=== PATIENT | male | born 1985 | race African-American/Black ===

== ENCOUNTER 2018-11-20 22:34 | Emergency (ER) | payer MEDICAID ==
[~2018-11-20] VITALS: Ht 188 cm; Wt 70.8 kg
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
[2018-11-20] MEDS ORDERED: IBUPROFEN600 MG ORAL ×3 (23:55→23:57)
[2018-11-20] MEDS ORDERED: AMOXICILLIN500 MG ORAL ×3 (23:55→23:57)
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
[2018-11-21 00:25] VITALS: BP 139/80
[2018-11-21 00:30] VITALS: BP 139/80
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
== END 2018-11-21 00:30 | disposition home or self-care (01) ==
LOC: EMR 22:56
DX: H66.92 Otitis media, unspecified, left ear (principal)
CPT/HCPCS: 70450; 99284

== ENCOUNTER 2019-02-08 13:14 | Emergency (ER) | payer MEDICAID, OTHER ==
[~2019-02-08] VITALS: Ht 185.4 cm; Wt 69.4 kg
[~2019-02-08 13:14] MED LIST: AMOXICILLIN500 MG ORAL; IBUPROFEN600 MG ORAL
[2019-02-08] MEDS ORDERED: NKM (13:20)
[2019-02-08 13:23] VITALS: BP 138/92
--- NOTE | 2019-02-08 13:24 | NUR ---
ED Nurse Note: pt walked in to ED with friend due to possible insect bite on left lower leg. redness noted. ambulatory with steady gait. AAO x4. no fever. will wait for the further order.
[2019-02-08] MEDS ORDERED: BACTRIM DS TAB1 EAC1 ORAL (13:42)
[2019-02-08] MEDS ORDERED: MUPIROCIN22 GM TOPIC (13:42)
[2019-02-08] MEDS ORDERED: CEPHALEXIN500 MG ORAL (13:42)
--- NOTE | 2019-02-08 13:42 | Emergency Room Report ---
History of Present Illness General Chief Complaint: Skin Rash/Abscess Source: Patient Present Illness HPI 33-year-old male presents to the emergency department complaining of 4 out of 10 severity pain, swelling, erythema and warmth to an itchy insect bite on the left lateral calf progressive x2 days. Patient reports area of erythema is progressing outward. Patient denies fevers or chills. Patient reports he is up -to-date with vaccinations. Patient reports history of infected insect bite in the past which did require incision and drainage as he waited too long. Pt. swollen tender lymph nodes. Denies lesions/rashes elsewhere on the body. Denies new medications or body washes or creams. Denies swelling of the lips, tongue , throat or airway. Denies wheezing, or shortness of breath. Denies recent travel , recent illness or ill contacts. denies blisters, oral lesions, or sloughing of the skin Allergies: Coded Allergies: No Known Allergies (Unverified , 11/20/18) Patient History Past Medical History: see triage record Past Surgical History: none Pertinent Family History: none Immunizations: UTD Reviewed Nursing Documentation: PMH: Agreed; PSxH: Agreed Nursing Documentation-PMH Past Medical History: No Stated History Review of Systems All Other Systems: negative except mentioned in HPI Physical Exam Vital Signs Date Time Temp Pulse Resp B/P (MAP) Pulse Ox O2 Delivery O2 Flow Rate FiO2 02/08/19 13:17 98.8 75 18 138/92 (107) 96 Room Air Sp02 EP Interpretation: reviewed, normal General Appearance: no apparent distress, alert, GCS 15, non-toxic Head: normocephalic, atraumatic Eyes: bilateral eye normal inspection, bilateral eye PERRL ENT: hearing grossly normal, normal pharynx, no angioedema, normal voice Neck: full range of motion Respiratory: lungs clear, normal breath sounds, no wheezing, speaking full sentences Cardiovascular #1: regular rate, rhythm Musculoskeletal: gait/station normal, normal range of motion, non-tender Neurologic: alert, oriented x3, responsive, motor strength/tone normal, sensory intact, speech normal, grossly normal Psychiatric: judgement/insight normal Skin: other - 1cm erythematous and indurated papule with centimeters of surrounding erythema and warmth. No fluctuance palpated, no blisters, vesicles or sloughing of the skin. No crusting. Lymphatic: no adenopathy Medical Decision Making PA Attestation Dr. Bishop is my supervising Physician whom patient management has been discussed with. Diagnostic Impression: Primary Impression: Cellulitis Qualified Codes: L03.116 - Cellulitis of left lower limb ER Course 33-year-old male presents to the emergency department complaining of 4 out of 10 severity pain, swelling, erythema and warmth to an itchy insect bite on the left lateral calf progressive x2 days. Patient reports area of erythema is progressing outward. Patient denies fevers or chills. Patient reports he is up -to-date with vaccinations. Patient reports history of infected insect bite in the past which did require incision and drainage as he waited too long. Pt. swollen tender lymph nodes. Denies lesions/rashes elsewhere on the body. Denies new medications or body washes or creams. Denies swelling of the lips, tongue , throat or airway. Denies wheezing, or shortness of breath. Denies recent travel , recent illness or ill contacts. denies blisters, oral lesions, or sloughing of the skin. Ddx considered but are not limited to cellulitis, scabies, insect bites, tic bites, spider bites, contact dermatitis, Drug reaction, allergic reaction, fungal infection, lice. Vital signs: are WNL, pt. is afebrile H&PE are most consistent with infected insect bite of the left lower extremity with surrounding cellulitis. ORDERS: none required at this time, the diagnosis is clinical ED INTERVENTIONS: -Application of Neosporin by MASTER LAY OUT SPECIALIST: At this time pt. is stable for d/c to home. Will provide printed patient care instructions, and any necessary prescriptions. Care plan and follow up instructions have been discussed with the patient prior to discharge. Last Vital Signs Date Time Temp Pulse Resp B/P (MAP) Pulse Ox O2 Delivery O2 Flow Rate FiO2 02/08/19 13:23 98.8 75 18 138/92 96 Room Air Disposition: HOME, SELF-CARE Condition: Stable Referrals: NON PHYSICIAN (PCP) Patient Instructions: Cellulitis, [id number] Additional Instructions: Take medications as directed. Follow up with a Primary Care Provider in 3-5 days, even if your symptoms have resolved. --Please review list of primary care clinics, if you do not already have a primary care provider Return sooner to ED if new symptoms occur, or current symptoms become worse. - Please note that this Emergency Department Report was dictated using [employer] technology software, occasionally this can lead to erroneous entry secondary to interpretation by the dictation equipment. Selena Isaacs Feb 08, 2019 13:42
[2019-02-08] MEDS ORDERED: Neosporin Oint Ud Pkt TOPIC ONE (13:45)
[2019-02-08 13:49] VITALS: BP 127/78
--- NOTE | 2019-02-08 13:50 | NUR ---
ER DISCHARGE NOTE: Patient is cleared to be discharged per ERMD with friend, pt is aox4, on room air, with stable vital signs. pt was given dc and prescription instructions, pt was able to verbalize understanding, pt id band removed without complications. pt is able to ambulate with steady gait. pt took all belongings.
== END 2019-02-08 13:50 | disposition home or self-care (01) ==
LOC: EMR 13:37
DX: L03.116 Cellulitis of left lower limb (principal)
CPT/HCPCS: 99282